=== PATIENT | female | born 1965 | race Two or more races ===

== ENCOUNTER 2024-08-07 15:47 | Emergency (ER) | payer MEDICAID, SELFPAY ==
[2024-08-07 16:31] VITALS: BP 131/71; PULSE 61; RESP 19; TEMP 36.4; O2SAT 97; BMI 40.2
--- NOTE | 2024-08-07 16:47 | XR_ITS ---
Examination: Abdomen sonogram, Limited Date and time of exam: August 07, 2024 1726 hours INDICATIONS: Right upper abdominal pain with nausea vomiting today Technique: Real-time sapp scale transabdominal sonographic images of the upper abdomen obtained. Findings: Absent gallbladder Common bile duct 0.6 cm Pancreatic head 2.5 cm Liver 16.5 cm fatty infiltration no focal liver lesions Normal hepatopedal portal venous flow Patent IVC IMPRESSION: Absent gallbladder Normal common bile duct Mild hepatomegaly fatty liver
--- NOTE | 2024-08-07 16:49 | PD.EDRME ---
Rapid Medical Screening Exam RME Arrival date/time: 08/07/24 15:47 Is a 59-year-old female presents emergency department with complaints of right upper quadrant abdominal pain that began 1 hour prior to ED arrival. I have greeted and performed a focused initial assessment of this patient. Initial appropriate labs ordered at this time. A comprehensive ED assessment and evaluation of the patient and analysis of all test and completion of medical decision making process will be conducted by additional ED provider. Chief Complaint: Abdominal Pain Time Seen by Provider: 08/07/24 16:18 Vital signs: Vital Signs Temperature 97.5 F 08/07/24 16:31 Pulse Rate 61 08/07/24 16:31 Respiratory Rate 19 08/07/24 16:31 Blood Pressure 131/71 H 08/07/24 16:31 Pulse Oximetry (%) 97 08/07/24 16:31 Oxygen Delivery Method Room Air 08/07/24 16:31
[2024-08-07 17:03] LABS: Basophils % (Auto) 0 % (0-2.5); Eosinophils # (Auto) 0.1 Thou/mm3 (0.0-0.5); Eosinophils % (Auto) 2 % (0-10); Hematocrit 37.7 % (36.0-46.0); Immature Granulocytes % (Auto) 0 % (0-0); Immature Granulocytes Auto 0.02 Thou/mm3 (0.00-0.00); Lymphocytes # (Auto) 2.9 Thou/mm3 (1.0-4.8); Lymphocytes % (Auto) 41 % (10-50); Mean Corpuscular HGB Conc 34.5 g/dl (31.0-37.0); Mean Corpuscular Hemoglobin 30.4 pg (25.0-35.0); Mean Corpuscular Volume 88 fL (80-100); Monocytes # (Auto) 0.6 Thou/mm3 (0.0-0.8); Monocytes % (Auto) 9 % (0-12); Neutrophils # (Auto) 3.4 Thou/mm3 (1.8-7.7); Neutrophils % (Auto) 48 % (37-80); Nucleated Red Blood Cell % 0 /100 WBC (0); Platelet Count 275 Thou/mm3 (140-440); RDW Standard Deviation 42.3 fL (36.4-46.3); Red Blood Count 4.28 Miln/mm3 (4.00-5.20); White Blood Count 7.1 Thou/mm3 (3.6-11.0)
[2024-08-07 17:18] LABS: Alanine Aminotransferase 63 U/L (10-49); Alkaline Phosphatase 75 U/L (46-116); Anion Gap 5 (7-16); Aspartate Amino Transferase 47 U/L (0-34); BUN/Creatinine Ratio 10 Ratio (12-20); Bilirubin,Total 0.5 mg/dL (0.3-1.2); Blood Urea Nitrogen 10 mg/dL (9-23); Calcium 9.9 mg/dL (8.3-10.6); Calcium (Corrected) 9.9 mg/dL (8.5-10.1); Carbon Dioxide 26.7 mMol/L (20.0-31.0); Chloride 103 mMol/L (98-107); Estimated Creatinine Clearance 55.8 mL/min (>60); Globulin 2.5 gm/dL (2.3-3.5); Glucose 96 mg/dL (74-106); Lipase 41 U/L (12-53); Osmolality,Calculated 269 (275-295); Potassium 3.8 mMol/L (3.4-5.1); Sodium 135 mMol/L (136-145); Total Protein 7.5 gm/dL (5.7-8.2); eGFR > 60 See Note
[2024-08-07] MEDS: LIDOCAINE VISCOUS 2% 15 ML UDC PO (18:00)
[2024-08-07] MEDS: MG HYD/AL HYD/SIME (Maalox Reg) SUSP 30 ML UDC PO (18:00)
[2024-08-07 18:32] LABS: Collection Type, Urine Clean Catch
[2024-08-07 18:58] LABS: Bilirubin,Urine Negative (Negative); Blood,Urine Negative (Negative); Clarity,Urine Turbid (Clear/Hazy); Color,Urine Yellow (Lt Yel-Yel); Glucose, Urine Negative (Negative); Ketones,Urine Negative (Negative); Leukocyte Esterase,Urine Positive (Negative); Nitrite,Urine Negative (Negative); PH,Urine 5.5 (5.0-7.0); Protein,Urine Trace (Neg - Trace); RBC,Urine 3 /hpf (0-3); Specific Gravity,Urine 1.024 (1.001-1.035); Squamous Epithelial Cell,Urine 5 /hpf (0-5); Urobilinogen,Urine Negative mg/dL (0.0-1.0); WBC,Urine 9 /hpf (0-5)
[2024-08-07 18:59] LABS: HCG Qualitative,Urine Negative
--- NOTE | 2024-08-07 19:29 | XR_ITS ---
Examination: CT abdomen with intravenous contrast CT pelvis with intravenous contrast 2-D coronal reconstructions 2-D sagittal reconstructions Date and time of exam:August 07, 2024 1954 hrs. Comparison April 18, 2023 Indications: Onset right lower abdominal pain today. CTDI: vol (mGy) 12 DLP: (mGycm) 611 Technique: Multiple axial sections of the abdomen and pelvis have been obtained. 64 slice high-resolution scanner used. 3 mm axial sections have been obtained, post intravenous injection 60 cc [id number] 2-D sagittal, coronal reconstructions obtained. Low dose protocols were performed. One or more of the following dose reduction techniques were used; automated exposure control, adjustment of the mA and/or KV according to patient size, use of iterative reconstruction technique. Findings: Diffuse fatty infiltration throughout the liver Absent gallbladder Spleen is not enlarged No pancreatic or adrenal mass Significant right renal parenchymal scar formation No renal or ureteral calculi, no hydronephrosis Aorta normal size Normal appendix No bowel obstruction No pelvic mass Urinary bladder intact Impression: Significant right renal parenchymal scar formation No hydronephrosis renal or ureteral calculi Normal appendix
--- NOTE | 2024-08-07 19:30 | PD.EDABDPN ---
ED Abdominal Pain RME/HPI General Chief Complaint: Abdominal Pain Stated complaint: Right abdominal pain x 30 min. Hx: gallstones Time seen by provider: 08/07/24 16:18 Arrival date/time: 08/07/24 15:47 RME / HPI RME / HPI narrative: 59-year-old female patient, morbidly obese, came in for evaluation regarding right lower quadrant pain. Onset of symptoms for 1 hour prior to arrival as sudden onset of right lower quadrant pain, severity moderate, nonradiating. Associated with vomiting. Denies any fever. Denies any diarrhea denies any constipation denies pneumaturia or frequency or dysuria. Patient denies any other complaints or medications taken prior travel. Related Data Previous Rx's ?Medication ?Instructions ?Recorded ibuprofen 800 mg tablet 800 mg PO TID PRN pain #30 tabs 12/13/22 cephalexin 500 mg capsule 500 mg PO Q8H 7 days #21 caps 08/07/24 lactulose 20 gram oral packet 20 g PO BID PRN constipation #30 ea 08/07/24 Allergies Allergy/AdvReac Type Severity Reaction Status Date / Time No Known Allergies Allergy Verified 04/18/23 18:27 Review of Systems Review of Systems Narrative Review of Systems: Review of system reviewed and within normal limits except mentioned in HPI ED Exam Narrative Physical exam: VITAL SIGNS: Reviewed. GENERAL APPEARANCE: Alert and interactive, follows commands, no acute distress, HEAD AND FACE: Non-traumatic. ENT: PERRL, pink conjunctivitis, eyelid no trauma, Mucous membrane moist. NECK: Supple, nontender, no nuchal rigidity. CHEST: No tenderness, no crepitus, no paradoxical movement, no retractions. LUNGS: Clear, well ventilated, symmetric, no rales, no wheezing, no ronchi, no stridor, good breath sounds bilaterally. HEART: Regular rate, regular rhythm, no murmur, no gallops. ABDOMEN: Soft, positive bowel sounds, nondistended, no guarding, right lower quadrant tenderness, no rebound, no masses, RECTAL: Deferred. GENITAL: Deferred. NEUROLOGICAL: Gross motor function intact sensory function intact, Appropriate for age. MUSCULOSKELETAL: low back nontender, full range of motion. EXTREMITIES: Nontender, full range of motion. SKIN: Color pink, dry, no rash, no lacerations, no abrasions, no contusions. LYMPHATICS: Deferred. Course Quality Measures none Orders Category Date Time Status CT Screening NOW Care 08/07/24 19:[address] abdomen pelvis w con Stat Exams 08/07/24 19:29 Completed US gall bladder Stat Exams 08/07/24 16:47 Completed CBC Stat Lab 08/07/24 16:56 Completed Comprehensive Metabolic Panel Stat Lab 08/07/24 16:56 Completed HCG Qualitative,Urine Stat Lab 08/07/24 18:25 Completed Lipase Stat Lab 08/07/24 16:56 Completed Urinalysis Stat Lab 08/07/24 18:25 Completed Lidocaine 2% Viscous [Xylocaine 2% Viscous] Med 08/07/24 16:47 Discontinued 15 ml PO X1 ONE cephALEXin [Keflex] Med 08/07/24 22:29 Discontinued 500 mg PO X1 ONE mg Hyd/Al Hyd/Wendi Susp [Maalox Susp] Med 08/07/24 16:47 Discontinued 30 ml PO X1 ONE Vital Signs Vital signs: Vital Signs Temperature 97.5 F 08/07/24 16:31 Pulse Rate 61 08/07/24 16:31 Respiratory Rate 19 08/07/24 16:31 Blood Pressure 131/71 H 08/07/24 16:31 Pulse Oximetry (%) 97 08/07/24 16:31 Oxygen Delivery Method Room Air 08/07/24 16:31 Abdominal Pain MDM Patient data External records reviewed:: None Clinical information provided by:: none Social determinants that could affect healthcare access:: none Patient has the following chronic illnesses:: None How is presenting disease/condition affected by chronic disease/condition?: no chronic disease Evaluation data The following diagnostics were reviewed and interpreted by me:: lab results and radiology exam(s) Lab and/or radiology exams considered but not ordered:: None Interpretation Summary: Laboratory workup is significant for UTI. The rest of the labs unremarkable. CT scan of the abdomen and pelvis, all came back unremarkable. Medications / Prescriptions Medications or Prescriptions considered but not ordered:: None Medication administrations:: Medication Administration History Discontinued Medications Al Hydrox/Mg Hydrox/Simethicone (Mg Hyd/Al Hyd/Wendi (Maalox Reg) Susp 30 Ml Udc) 30 ml PO X1 ONE Stop: 08/07/24 16:48 Last Admin: 08/07/24 18:00 Dose: 30 ml Documented By: Cephalexin HCl (Cephalexin 250 Mg Capsule) 500 mg PO X1 ONE Stop: 08/07/24 22:30 Last Admin: 08/07/24 22:51 Dose: 500 mg Lidocaine HCl (Lidocaine Viscous 2% 15 Ml Udc) 15 ml PO X1 ONE Stop: 08/07/24 16:48 Last Admin: 08/07/24 18:00 Dose: 15 ml Documented By: Americo Elder Consultations Consultation(s) initiated? (list below): No Diagnosis Differential diagnosis abdominal pain: abdominal pain Most likely diagnosis given after review of the tests above:: UTI Admission Indicated Admission indicated?: not indicated Admission Request Was there a request for admission?: No Admission Attestation Admission request attestation: None Disposition Plan Disposition Plan: Discharge Discharge Attestation Discharge Attestation: The patient and all family members were given an opportunity to ask questions and understood the discharge instructions. Discharge instructions specifically effects, indications for sooner follow up or return to the emergency department, and the expected course of current diagnosis. Patient condition: Stable Discharge Plan Plan Patient Disposition: HOME (Self Care) Disposition Comment: Stable Prescriptions/Referrals Prescriptions/Med Rec: New cephalexin 500 mg capsule 500 mg PO Q8H 7 Days Qty: 21 0RF lactulose 20 gram packet 20 g PO BID PRN (Reason: constipation) Qty: 30 0RF No Action ibuprofen 800 mg tablet 800 mg PO TID PRN (Reason: pain) Qty: 30 0RF Referrals: Isael Walker MD [Primary Care Provider] - In 1 week Problem List Clinical Impression: Abdominal pain, UTI (urinary tract infection) Patient/Caregiver Discharge Instructions Discharge Activity: activity as tolerated Education Materials: Understanding Urinary Tract ... Additional Instructions: Thank you for the opportunity for serving you today. You are stable for discharged . You are advised to: Follow-up with your PCP in 1 to 2 days Return to ED for worsening of symptoms Increase oral fluids Take medication as prescribed Print Language: Ukrainian Stand Alone Forms: Manda Award Info., Patient Portal Info Letter PA/JENNIFER Supervising Physician BEL/JENNIFER Supervising Physician: MD Indigo
[2024-08-07] MEDS: cephALEXin 250 MG CAPSULE 500 MG PO (22:51)
== END 2024-08-07 23:04 | disposition home or self-care (01) ==
PROVIDERS: Nurse Practitioner Primary Care; Emergency Provider Emergency Medicine; PCP Family Medicine
DX: N39.0 Urinary tract infection, site not specified (principal); R10.31 Right lower quadrant pain
CPT/HCPCS: 36415; 74177; 76705; 80053; 81001; 81025; 83690; 85025; 99285; A4649; J3490; Q9967; A9270

== ENCOUNTER 2025-08-24 15:56 | Emergency (ER) | payer MEDICAID, SELFPAY ==
[2025-08-24 15:56] VITALS: BMI 35.9
[2025-08-24 16:16] VITALS: BP 114/66; PULSE 78; RESP 18; TEMP 36.4; O2SAT 96
--- NOTE | 2025-08-24 16:51 | XR_ITS ---
Examination: CT abdomen and pelvis without contrast. Coronal 3-D reconstructions. Sagittal 2-D reconstructions. Date and time of exam: August 24, 2025, 1704 hours, comparison August 07, 2024 INDICATIONS: Abdominal pain left lower back pain and discolored urine with severe left flank pain today CTDI: vol (mGy): 10.4 DLP: (mGycm): 534 Technique: Axial images of the abdomen have been obtained, 3 mm slice thickness Intravenous contrast material has not been administered. Low dose protocols were performed. One or more of the following dose reduction techniques were used; automated exposure control, adjustment of the mA and/or KV according to patient size, use of iterative reconstruction technique. Findings: Fatty infiltration throughout the liver Absent gallbladder Spleen not enlarged No pancreatic or adrenal mass Moderate renal scar formation No hydronephrosis or renal ureteral calculi Aorta normal size Normal appendix No bowel obstruction No pelvic mass No bladder mass or bladder calculi IMPRESSION: Moderate bilateral renal scar formation, no renal or ureteral calculi, no hydronephrosis Normal appendix No bowel obstruction Advanced degenerative disc disease L5-S1
--- NOTE | 2025-08-24 16:53 | PD.EDRME ---
Rapid Medical Screening Exam RME Arrival date/time: 08/24/25 15:56 60-year-old female reports with complaints of left lower back pain and dark color to urine x 2 days Chief Complaint: Back Pain/Injury Time Seen by Provider: 08/24/25 16:06 Vital signs: Vital Signs Temperature 97.6 F 08/24/25 16:16 Pulse Rate 78 08/24/25 16:16 Respiratory Rate 18 08/24/25 16:16 Blood Pressure 114/66 08/24/25 16:16 Pulse Oximetry (%) 96 08/24/25 16:16 Oxygen Delivery Method Room Air 08/24/25 16:16 Exam: 0 Clinical Impression: 0
[2025-08-24] MEDS: KETOROLAC INJ 60 MG/2 ML VIAL IM (17:36)
[2025-08-24 17:50] LABS: Collection Type, Urine Clean Catch
[2025-08-24 18:19] LABS: Bacteria,Urine Rare; Bilirubin,Urine Negative (Negative); Blood,Urine Negative (Negative); Clarity,Urine Clear (Clear/Hazy); Color,Urine Lt-Yellow (Lt Yel-Yel); Culture Indicated,Urine Not Indicated; Glucose, Urine Negative (Negative); Ketones,Urine Negative (Negative); Leukocyte Esterase,Urine Positive (Negative); Nitrite,Urine Negative (Negative); PH,Urine 6.0 (5.0-7.0); Protein,Urine Negative (Neg - Trace); RBC,Urine 4 /hpf (0-3); Specific Gravity,Urine 1.012 (1.001-1.035); Squamous Epithelial Cell,Urine 1 /hpf (0-5); Urobilinogen,Urine Negative mg/dL (0.0-1.0); WBC,Urine 5 /hpf (0-5)
--- NOTE | 2025-08-24 19:23 | PD.EDADULT ---
ED General RME/HPI General Chief complaint: Back Pain/Injury Stated complaint: LEFT BACK/FLANK PAIN X2D Time Seen by Provider: 08/24/25 16:06 Arrival date/time: 08/24/25 15:56 CC: Left-sided flank/back pain after tripping on a curve. Patient did not fall. Also patient complaining of burning sensation in her mid abdomen epigastric area after eating food. Also was complaining of 3 days of dark urine. Patient denies chest pain shortness of breath fever chills nausea or vomiting. RME / HPI RME / HPI narrative: 08/24/25 15:56 60-year-old female reports with complaints of left lower back pain and dark color to urine x 2 days Exam: 0 Impression: 0 Related Data Previous Rx's ?Medication ?Instructions ?Recorded ibuprofen 800 mg tablet 800 mg PO TID PRN pain #30 tabs 12/13/22 lactulose 20 gram oral packet 20 g PO BID PRN constipation #30 ea 08/07/24 famotidine 20 mg tablet 20 mg PO QDAY #30 tabs 08/24/25 Allergies Allergy/AdvReac Type Severity Reaction Status Date / Time No Known Allergies Allergy Verified 08/24/25 15:58 Review of Systems Review of Systems Narrative Review of Systems: GEN: No fever, no chills, no weight loss EYES: No discharge, no visual changes, no pain HEENT: No ear pain, no congestion, no sore throat PULM: No shortness of breath, no cough, no congestion CV: No chest pain, no dyspnea on exertion, no palpitations GI: No nausea, no vomiting, no diarrhea, no pain, no constipation : No frequency, no urgency, no dysuria MUSC/SKEL: No joint pain, no back pain SKIN: No rash PSYCH: No hallucinations, no depression HEME/LYMPH: No easy bleeding or bruising tendencies NEURO: No weakness, no headache Past Medical History Past Medical History CARDIAC: Negative Cardiac Disorders or Congestive Heart Failure RESPIRATORY: Negative Chronic Obstructive Pulmonary Disease (COPD) or Asthma GENITOURINARY: Negative Renal Disease ENDOCRINE: Negative Diabetes Mellitus Type 1 or Diabetes Mellitus Type 2 HEMATOLOGIC: Positive Blood Disorders and Anemia; Negative Sickle Cell Disease OTHER HISTORY: Positive Blood Transfusions Family History FAMILY HISTORY: Negative Family Cardiac Disorders Social History SMOKING STATUS: Never smoker ED Exam Narrative Physical exam: [General: Obese not in any acute distress Head normocephalic HEENT: Within acceptable limits Neck is supple nontender Chest equal chest rise nontender to palpation Respiratory: Clear to auscultation no wheezes crackles or rubs CV: Rate rhythm is regular no murmurs rubs or clicks Abdomen is distended secondary to body habitus soft epigastric tenderness with palpation no reflexive guarding or rebound tenderness. s Back: No CVA tenderness no spinous process tenderness from cervical spine thoracic and lumbar spine Skin: Intact no petechiae rash induration ulceration or crepitus Extremities: Moving all extremity against resistance cap refill less than 2 seconds neurosensory intact Neuro: Awake alert oriented x3 Glascow coma 15 no focal deficits] Course Course Course Narrative: No acute finding the patient's pain in her left flank and is reproducible with site-specific most likely a pulled muscle. All other laboratory findings and imaging is negative. Patient be discharged home with heartburn and pulled muscle. Quality Measures none Orders Category Date Time Status CT abdomen pelvis wo con Stat Exams 08/24/25 16:51 Completed UA, C/S IF [Urinalysis, C/S if Indicated] Stat Lab 08/24/25 17:24 Completed Ketorolac Inj [Toradol Inj] Med 08/24/25 16:51 Discontinued 60 mg IM X1 ONE Vital Signs Vital signs: Vital Signs Temperature 97.6 F 08/24/25 16:16 Pulse Rate 78 08/24/25 16:16 Respiratory Rate 18 08/24/25 16:16 Blood Pressure 114/66 08/24/25 16:16 Pulse Oximetry (%) 96 08/24/25 16:16 Oxygen Delivery Method Room Air 08/24/25 16:16 Discharge Plan Plan Patient Disposition: HOME (Self Care) Patient condition on transfer: Stable Prescriptions/Referrals Prescriptions/Med Rec: New famotidine 20 mg tablet 20 mg PO QDAY Qty: 30 0RF No Action ibuprofen 800 mg tablet 800 mg PO TID PRN (Reason: pain) Qty: 30 0RF lactulose 20 gram packet 20 g PO BID PRN (Reason: constipation) Qty: 30 0RF Referrals: Isael Walker MD [Physician, Family Practice] - In 1 week No Primary/Family,Physician [Primary Care Provider] - In 1 week Problem List Clinical Impression: Back strain, Heartburn Patient/Caregiver Discharge Instructions Education Materials: Treating Gastritis, ED Back Sprain/Strain Additional Instructions: Take the medication as prescribed avoid greasy spicy and fatty foods for the heartburn for the back Pantene ibuprofen or Tylenol. Your urine is unremarkable. Print Language: Citizen Of [place] Stand Alone Forms: Manda Award Info., Patient Portal Info Letter, Work/School Release PA/BOBBIN WASHER Supervising Physician PA/JENNIFER Supervising Physician: Kwame Cedillo ENP [facility] Clinical Information Provided by: patient Medical Records reviewed [facility] Meds/Rx considered, not ordered None Labs/Rad/Tests considered, not ordered None Chronic Illness/Social Conditions which may negatively complicate care or outcome(s)-explain: None or not applicable EKG EKG not done Labs Labs: interpreted by [facility] Lab(s) Interpretation(s): Urine shows no acute infection. Imaging Imaging interpretation: interpreted by me Imaging Interpretation(s): Abdomen pelvis showed nothing except advanced degenerative disc disease at L5-S1. Medication Administration(s) Medication Administration History Discontinued Medications Ketorolac Tromethamine (Ketorolac Inj 60 Mg/2 Ml Vial) 60 mg IM X1 ONE Stop: 08/24/25 16:52 Last Admin: 08/24/25 17:36 Dose: 60 mg Documented By: CARRIE
[2025-08-24 19:52] VITALS: RESP 18
== END 2025-08-24 19:53 | disposition home or self-care (01) ==
PROVIDERS: Physician Assistant; Emergency Provider Emergency Medicine
DX: S39.012A Strain of muscle, fascia and tendon of lower back, initial encounter (principal); R12 Heartburn; W18.49XA Other slipping, tripping and stumbling without falling, initial encounter
CPT/HCPCS: 74176; 81001; 96372; 99283; J1885